=== PATIENT | female | born 1980 | race Caucasian/White ===

== ENCOUNTER 2019-03-30 23:33 | Emergency (ER) | payer MEDICAID, OTHER ==
[~2019-03-30] VITALS: Ht 154.9 cm; Wt 66.7 kg
[2019-03-30 23:41] VITALS: BP 129/71
--- NOTE | 2019-03-31 00:38 | NUR ---
PT AMBULATED TO ER BED 8
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
--- NOTE | 2019-03-31 01:45 | NUR ---
PT GIVEN PO CONTRAST TO CONSUME.
[2019-03-31 02:09] LABS: BASOPHILS % (AUTO) 0.3 % (0.0-2.0); EOSINOPHILS % (AUTO) 0.5 % (0.0-4.0); HEMATOCRIT 40.1 % (36-48); HEMOGLOBIN 13.4 g/dL (12.0-16.0); LYMPHOCYTES # (AUTO) 2.8 K/uL (2.5-16.5); LYMPHOCYTES % (AUTO) 34.5 % (20.5-51.1); MEAN CORPUSCULAR HEMOGLOBIN 31 pg (27-31); MEAN CORPUSCULAR HGB CONC 33 g/dL (33-37); MEAN CORPUSCULAR VOLUME 91.9 fL (80-94); MONOCYTES # (AUTO) 0.5 K/uL (0.8-1.0); MONOCYTES % (AUTO) 6.7 % (1.7-9.3); NEUTROPHILS # (AUTO) 4.8 K/uL (1.8-7.7); PLATELET COUNT (AUTO) 240 K/uL (140-450); RED BLOOD CELL COUNT(AUTO) 4.36 MIL/uL (4.20-5.40); RED CELL DISTRIBUTION WIDTH 12.8 % (11.6-13.7); WHITE BLOOD COUNT (AUTO) 8.2 K/uL (4.8-10.8)
[2019-03-31 02:16] LABS: APPEARANCE,URINE CLEAR (CLEAR); BILIRUBIN,URINE NEGATIVE (NEGATIVE); BLOOD, URINE NEGATIVE (NEGATIVE); COLOR,URINE YELLOW (YELLOW); LEUKOCYTE ESTERASE ,URINE NEGATIVE (NEGATIVE); NITRITE, URINE NEGATIVE (NEGATIVE); PH,URINE 8.5 (5.0-9.0); UGLUCOSE NEGATIVE (NEGATIVE)
[2019-03-31 02:33] LABS: RBC,URINE 0-5 /HPF (0-5); WBC,URINE 0-5 /HPF (0-5)
[2019-03-31 02:34] LABS: ANION GAP 13.3 (8-16); CARBON DIOXIDE 26.5 mmol/L (21-32); CREATININE 0.7 mg/dL (0.6-1.3); POTASSIUM 3.8 mmol/L (3.5-5.1)
[2019-03-31 02:39] LABS: ALBUMIN 3.9 g/dL (3.4-5.0); TOTAL BILIRUBIN 0.4 mg/dL (0.0-1.0)
--- NOTE | 2019-03-31 03:29 | NUR ---
PT AWAKE AND ALERT. VSS AT THIS TIME. NO CHANGE IN PT CONDITION. WILL CONTINUE TO MONITOR.
--- NOTE | 2019-03-31 03:45 | NUR ---
PT CONSUMED PO CONTRAST. RAD MADE AWARE
--- NOTE | 2019-03-31 04:00 | NUR ---
PT TAKEN TO CT VIA W/C
--- NOTE | 2019-03-31 04:07 | NUR ---
PT RETURNED FROM CT VIA W/C
[2019-03-31 05:00] VITALS: BP 117/82
--- NOTE | 2019-03-31 05:00 | NUR ---
PT STATED "I CANNOT STAY. I HAVE TO GO HOME AND TAKE CARE OF MY KIDS. I CANT JUST WAIT HERE ALL NIGHT FOR THESE RESULTS." PT AGREED TO WAIT ADDITIONAL [address] DEAN MADE AWARE.
--- NOTE | 2019-03-31 05:15 | NUR ---
PT DECIDED TO LEAVE WITHOUT RESULTS OR DISCHARGE PAPERWORK. DR. DEAN MADE AWARE.
--- NOTE | 2019-03-31 05:30 | NUR ---
PT IN LOBBY. PT TOLD ADMITTING PERSONNEL THAT SHE WOULD WAIT AN ADDTIONAL HOUR FOR RESULTS BUT ONLY IN THE LOBBY.
--- NOTE | 2019-03-31 05:57 | NUR ---
PT CT REPORT BACK. PT CALLED IN LOBBY WITH NO ANSWER.
== END 2019-03-31 05:15 | disposition home or self-care (01) ==
LOC: MED 23:33
DX: R10.33 Periumbilical pain (principal)
CPT/HCPCS: 36415; 80053; 81001; 81025; 83690; 85025; 99284